=== PATIENT | female | born 1935 | race Caucasian/White ===

== ENCOUNTER 2018-08-31 21:36 | Emergency (ER) | payer MEDICARE, OTHER ==
[2018-08-31 22:07] LABS: URINE BLOOD (Dip) POC Negative (NEGATIVE); URINE GLUCOSE (Dip) POC Negative (NEGATIVE); URINE KETONES (Dip) POC Negative (NEGATIVE); URINE LEUKOCYTE EST (Dip) POC Negative (NEGATIVE); URINE NITRITE (Dip) POC Negative (NEGATIVE); URINE TOTAL PROTEIN POC 2+ (NEGATIVE)
[2018-08-31] MEDS: DIPHENHYDRAMINE 50 MG INJ IV ×2 (22:17→23:24)
[2018-08-31] MEDS: METOCLOPRAMIDE 10 MG INJ IV (22:17)
[2018-08-31] MEDS: hydrALAzine 20 MG INJ IV (22:18)
[2018-08-31 22:28] LABS: ABNORMAL IP MESSAGE 1; HEMATOCRIT 33.1 % (37.0-47.0); HEMOGLOBIN 10.2 g/dl (12.0-16.0); MEAN CORPUSCULAR HEMOGLOBIN 27.2 pg (29.0-33.0); MEAN CORPUSCULAR HGB CONC 30.8 g/dl (32.0-37.0); MEAN CORPUSCULAR VOLUME 88.3 fl (82.0-101.0); MEAN PLATELET VOLUME 10.3 fl (7.4-10.4); NUCLEATED RED BLOOD CELLS% 0.5 /100WBC (0.0-0.0); PLATELET COUNT 901 10^3/UL (140-415); RED BLOOD COUNT 3.75 10^6/ul (4.20-5.40); RED CELL DISTRIBUTION WIDTH 20.7 % (11.5-14.5)
[2018-08-31 22:28] LABS: WHITE BLOOD COUNT 13.2 10^3/ul (4.8-10.8)
[2018-08-31 22:30] LABS: ADD MAN DIFF? YES; POSITIVE DIFF @See below
[2018-08-31 22:43] LABS: ANION GAP 13 (8-16); BLOOD UREA NITROGEN 35 mg/dl (7-20); CALCIUM 10.6 mg/dl (8.4-10.2); CARBON DIOXIDE 25 mmol/L (21-31); CHLORIDE 99 mmol/L (97-110); CREATININE 1.47 mg/dl (0.44-1.00); GLUCOSE 118 mg/dl (70-220); SODIUM 133 mmol/L (135-144)
[2018-08-31 22:47] LABS: INR 0.94; PROTIME 12.7 Sec (11.9-14.9)
[2018-08-31 22:48] LABS: PARTIAL THROMBOPLASTIN TIME 33.5 Sec (23.0-35.0)
[2018-08-31] MEDS: DEXAMETHASONE 4 MG/ML 1 ML INJ IV (22:56)
[2018-08-31] MEDS: morphine 4 MG/ML VIAL IV (22:56)
[2018-08-31 22:58] LABS: ANISOCYTOSIS 1+ (0-0); BAND NEUTROPHILS #M 0.1 10^3/ul (0.0-0.6); BAND NEUTROPHILS % (M) 1 % (0-4); EOSINOPHILS % (M) 1 % (0-7); ERYTHROBLAST% (NRBC) (M) 2 % (0-0); GIANT THROMBO% (M) 6 % (0-0); LYMPHOCYTES #M 1.7 10^3/ul (0.8-2.9); LYMPHOCYTES % (M) 13 % (15-51); MICROCYTOSIS 1+ (0-0); MONOCYTE #M 0.3 10^3/ul (0.3-0.9); MONOCYTES % (M) 3 % (0-11); MYELOCYTES #M 0.3 10^3/ul (0.0-0.0); MYELOCYTES % (M) 3 % (0-0); OVALOCYTES 1+ (0-0); PLATELET ESTIMATE INCREASED; POIKILOCYTOSIS 2+ (0-0); POLYCHROMASIA 1+ (0-0); PROMYELOCYTES #M 0.1 10^3/ul (0-0); PROMYELOCYTES % (M) 1 % (0-0); SEG NEUT #M 10.3 10^3/ul (1.6-7.5); SEGMENTED NEUTROPHILS (M) % 78 % (39-77); SMUDGE%M 8 % (0-0); TEAR DROP CELLS 1+ (0-0)
[2018-08-31] MEDS: HYDROmorphONE 0.5 MG/0.5 ML SYG IV (23:24)
[2018-08-31] MEDS: KETOROLAC 15 MG INJ IV (23:29)
== END 2018-08-31 23:42 | disposition home or self-care (01) ==
LOC: E/R 23:42
DX: I10 Essential (primary) hypertension (principal); I25.10 Atherosclerotic heart disease of native coronary artery without angina pectoris; Z79.82 Long term (current) use of aspirin
CPT/HCPCS: 36415; 70450; 80048; 81003; 85025; 85610; 85730; 96374; 96375; 96376; 99285-25

== ENCOUNTER 2018-11-17 13:03 | Emergency (ER) | payer MEDICARE, OTHER | END 2018-11-17 14:05 | disposition home or self-care (01) | LOC: E/R 13:03 | DX: I10 Essential (primary) hypertension (principal); I25.10 Atherosclerotic heart disease of native coronary artery without angina pectoris; Z98.61 Coronary angioplasty status; Z79.82 Long term (current) use of aspirin | CPT/HCPCS: 93005; 99283; 99283-25 ==

== ENCOUNTER 2018-12-01 21:06 | Emergency (ER) | payer MEDICARE, OTHER ==
[2018-12-02] MEDS: METOCLOPRAMIDE 10 MG INJ IV (00:40)
[2018-12-02] MEDS: DIPHENHYDRAMINE 50 MG INJ IV (00:40)
[2018-12-02 00:48] LABS: WHITE BLOOD COUNT 11.4 10^3/ul (4.8-10.8)
[2018-12-02 00:48] LABS: ABNORMAL IP MESSAGE 1; HEMATOCRIT 32.5 % (37.0-47.0); HEMOGLOBIN 10.5 g/dl (12.0-16.0); MEAN CORPUSCULAR HEMOGLOBIN 26.3 pg (29.0-33.0); MEAN CORPUSCULAR HGB CONC 32.3 g/dl (32.0-37.0); MEAN CORPUSCULAR VOLUME 81.3 fl (82.0-101.0); MEAN PLATELET VOLUME 9.9 fl (7.4-10.4); RED CELL DISTRIBUTION WIDTH 20.7 % (11.5-14.5)
[2018-12-02 00:54] LABS: ADD MAN DIFF? YES; PATH REVIEW? YES; POSITIVE DIFF @See below
[2018-12-02 00:56] LABS: ANION GAP 16 (5-13); BLOOD UREA NITROGEN 55 mg/dl (7-20); CALCIUM 10.5 mg/dl (8.4-10.2); CARBON DIOXIDE 24 mmol/L (21-31); CHLORIDE 90 mmol/L (97-110); GLUCOSE 114 mg/dl (70-220); PLATELET COUNT 1029 10^3/UL (140-415); POTASSIUM 4.2 mmol/L (3.5-5.1); SODIUM 130 mmol/L (135-144)
[2018-12-02 00:59] LABS: INR 0.97
[2018-12-02 01:00] LABS: PARTIAL THROMBOPLASTIN TIME 30.6 Sec (23.0-35.0)
[2018-12-02 01:32] LABS: ANISOCYTOSIS 1+ (0-0); BAND NEUTROPHILS #M 0.4 10^3/ul (0.0-0.6); BAND NEUTROPHILS % (M) 4 % (0-4); BASOPHIL #M 0.1 10^3/ul (0.0-0.0); BASOPHILS % (M) 1 % (0-2); EOSINOPHILS % (M) 5 % (0-7); LYMPHOCYTES #M 1.7 10^3/ul (0.8-2.9); LYMPHOCYTES % (M) 15 % (15-51); METAMYELOCYTES #M 0.3 10^3/ul (0.0-0.0); METAMYELOCYTES %M 3 % (0-0); MICROCYTOSIS 1+ (0-0); MONOCYTE #M 0.4 10^3/ul (0.3-0.9); MONOCYTES % (M) 4 % (0-11); PLATELET ESTIMATE INCREASED; POIKILOCYTOSIS 2+ (0-0); POLYCHROMASIA 2+ (0-0); REACTIVE LYMPHOCYTES #M 0.3 10^3/ul (0.0-0.0); REACTIVE LYMPHOCYTES% (M) 3 % (0-0); SEG NEUT #M 7.5 10^3/ul (1.6-7.5); SEGMENTED NEUTROPHILS (M) % 65 % (39-77); SMUDGE%M 9 % (0-0)
[2018-12-02] MEDS: morphine 4 MG/ML VIAL IV (02:24)
== END 2018-12-02 03:26 | disposition home or self-care (01) ==
LOC: E/R 21:06
DX: R51 Headache (principal); R40.2142 Coma scale, eyes open, spontaneous, at arrival to emergency department; R40.2362 Coma scale, best motor response, obeys commands, at arrival to emergency department; R40.2252 Coma scale, best verbal response, oriented, at arrival to emergency department; N28.9 Disorder of kidney and ureter, unspecified; D75.89 Other specified diseases of blood and blood-forming organs; I25.10 Atherosclerotic heart disease of native coronary artery without angina pectoris; I10 Essential (primary) hypertension; Z98.61 Coronary angioplasty status; Z79.82 Long term (current) use of aspirin
CPT/HCPCS: 36415; 70450; 80048; 85025; 85610; 85730; 96374; 96375; 99285-25

== ENCOUNTER 2019-01-18 15:29 | Emergency (ER) | payer MEDICARE, OTHER ==
[2019-01-18 18:35] LABS: WHITE BLOOD COUNT 23.7 10^3/ul (4.8-10.8)
[2019-01-18 18:35] LABS: ABNORMAL IP MESSAGE 1; HEMATOCRIT 25.8 % (37.0-47.0); HEMOGLOBIN 8.1 g/dl (12.0-16.0); MEAN CORPUSCULAR HEMOGLOBIN 27.4 pg (29.0-33.0); MEAN CORPUSCULAR HGB CONC 31.4 g/dl (32.0-37.0); MEAN CORPUSCULAR VOLUME 87.2 fl (82.0-101.0); MEAN PLATELET VOLUME 10.8 fl (7.4-10.4); NUCLEATED RED BLOOD CELLS% 0.1 /100WBC (0.0-0.0); PLATELET COUNT 1136 10^3/UL (140-415); RED BLOOD COUNT 2.96 10^6/ul (4.20-5.40); RED CELL DISTRIBUTION WIDTH 21.6 % (11.5-14.5)
[2019-01-18 18:38] LABS: ADD MAN DIFF? YES; POSITIVE DIFF @See below
[2019-01-18 18:41] LABS: ALANINE AMINOTRANSFERASE 25 IU/L (13-69); ALBUMIN 4.2 g/dl (3.3-4.9); ALBUMIN/GLOBULIN RATIO 1.23; ALKALINE PHOSPHATASE 103 IU/L (42-121); ANION GAP 13 (5-13); ASPARTATE AMINO TRANSFERASE 37 IU/L (15-46); BLOOD UREA NITROGEN 32 mg/dl (7-20); CALCIUM 10.4 mg/dl (8.4-10.2); CARBON DIOXIDE 19 mmol/L (21-31); CHLORIDE 99 mmol/L (97-110); CREATININE 1.67 mg/dl (0.44-1.00); GLUCOSE 118 mg/dl (70-220); LIPASE 384 U/L (23-300); POTASSIUM 4.2 mmol/L (3.5-5.1); SODIUM 131 mmol/L (135-144); TOTAL PROTEIN 7.6 g/dl (6.1-8.1)
[2019-01-18 19:04] LABS: ANISOCYTOSIS 2+ (0-0); BAND NEUTROPHILS #M 1.4 10^3/ul (0.0-0.6); BAND NEUTROPHILS % (M) 6 % (0-4); GIANT THROMBO% (M) 6 % (0-0); HYPOCHROMASIA 1+ (0-0); LYMPHOCYTES #M 2.8 10^3/ul (0.8-2.9); LYMPHOCYTES % (M) 12 % (15-51); METAMYELOCYTES #M 0.2 10^3/ul (0.0-0.0); METAMYELOCYTES %M 1 % (0-0); MICROCYTOSIS 1+ (0-0); MONOCYTE #M 0.2 10^3/ul (0.3-0.9); MONOCYTES % (M) 1 % (0-11); OVALOCYTES 3+ (0-0); PLATELET ESTIMATE INCREASED; PLATELET MORPHOLOGY COMMENT @See below; POIKILOCYTOSIS 2+ (0-0); POLYCHROMASIA 3+ (0-0); SEG NEUT #M 19.3 10^3/ul (1.6-7.5); SEGMENTED NEUTROPHILS (M) % 80 % (39-77); SMUDGE%M 1 % (0-0)
[2019-01-18] MEDS: CEFTRIAXONE 1 GM/50 ML (PMX) 50 ML IVPB (19:06)
[2019-01-18 19:19] LABS: ADD UMIC YES; UR ASCORBIC ACID NEGATIVE (NEGATIVE); UR BILIRUBIN (Dip) NEGATIVE (NEGATIVE); UR BLOOD (Dip) NEGATIVE (NEGATIVE); UR CLARITY CLEAR (CLEAR); UR COLOR YELLOW (YELLOW); UR GLUCOSE (Dip) NEGATIVE (NEGATIVE); UR KETONES (Dip) NEGATIVE (NEGATIVE); UR LEUKOCYTE ESTERASE (Dip) NEGATIVE Leu/ul (NEGATIVE); UR NITRITE (Dip) NEGATIVE (NEGATIVE); UR RBC 1 /HPF (0-5); UR SPECIFIC GRAVITY (Dip) 1.005 (1.003-1.030); UR SQUAMOUS EPITHELIAL CELL FEW /HPF (FEW); UR TOTAL PROTEIN (Dip) 2+ mg/dl (NEGATIVE); UR UROBILINOGEN (Dip) NEGATIVE (NEGATIVE); UR WBC 0 /HPF (0-5)
== END 2019-01-18 20:29 | disposition home or self-care (01) ==
LOC: E/R 15:29
DX: D46.9 Myelodysplastic syndrome, unspecified (principal); R33.9 Retention of urine, unspecified; I25.10 Atherosclerotic heart disease of native coronary artery without angina pectoris; I10 Essential (primary) hypertension; Z79.82 Long term (current) use of aspirin
CPT/HCPCS: 36415; 80053; 81001; 83690; 85025; 87086; 96374; 99284-25